=== PATIENT | male | born 1985 | race African-American/Black ===

== ENCOUNTER 2018-01-24 08:38 | Emergency (ER) | payer SELFPAY ==
[2018-01-24] MEDS: ACETAMINOPHEN 500 MG TABLET PO (09:26)
[2018-01-24] MEDS: HYDROCORTISONE ACETATE 25 MG SUPP.RECT PR (09:26)
[2018-01-24 09:32] LABS: FECAL OB PT POSITIVE (NEG); NEG OBC FOB NEG; POS OBC FOB POS
== END 2018-01-24 09:35 | disposition home or self-care (01) ==
LOC: ER 08:38
DX: K64.0 First degree hemorrhoids (principal); K64.4 Residual hemorrhoidal skin tags; K59.00 Constipation, unspecified; J45.909 Unspecified asthma, uncomplicated; Z90.49 Acquired absence of other specified parts of digestive tract; F17.200 Nicotine dependence, unspecified, uncomplicated
CPT/HCPCS: 82274; 99283

== ENCOUNTER 2018-09-04 02:39 | Emergency (ER) | payer SELFPAY ==
[~2018-09-04] VITALS: Ht 172.7 cm; Wt 65.3 kg
[~2018-09-04 02:39] MED LIST: HYDR30CR61 TP; POLY17PO29 PO; WITC1MED18 TP
--- NOTE | 2018-09-04 03:14 | PHYS DOC ---
Past Medical History Past Medical History: Asthma, Other Additional Past Medical Histor: ABSCESSES, HEMORRHOIDS Past Surgical History: Appendectomy, Other Additional Past Surgical Histo: I&D of abscess Alcohol Use: Occasionally Drug Use: None Adult General Chief Complaint Chief Complaint: LACERATION/AVULSION HPI HPI Patient is a 32 year old male presenting with laceration he tripped and fell he was drinking alcohol he states sustained a laceration to his chin. No loss of consciousness no blood thinners. Current Medications Current Medications Current Medications Medications (Trade) Dose Ordered Sig/Nusrat Start Time Stop Time Status Last Admin Dose Admin Diphtheria/ Tetanus/Acell Pertussis (Boostrix) 0.5 ml ONCE ONCE 09/04/18 03:15 09/04/18 03:16 UNV Lidocaine HCl 10 ml 1X ONCE 09/04/18 03:15 09/04/18 03:16 UNV Allergies Allergies Allergies Coded Allergies Type Severity Reaction Last Updated Verified No Known Drug Allergies 04/02/14 No Physical Exam Physical Exam Constitutional: Well developed, well nourished, no acute distress, non-toxic appearance. [] HENT: Normocephalic, 3 cm laceration to the chin decreased subcutaneous no foreign body noted. Eyes: PERRLA, EOMI, conjunctiva normal, no discharge. [] Neck: Normal range of motion, no tenderness, supple, no stridor. [] Pulmonary: Normal respiratory effort no increased work of breathing no obvious chest wall trauma Abdomen: Bowel sounds normal, soft, no tenderness, no masses, no pulsatile masses. [] Skin: Warm, dry, no erythema, no rash. [] See above Back: No tenderness, no CVA tenderness. [] Extremities: No tenderness, no cyanosis, no clubbing, ROM intact, no edema. [] Neurologic: Alert and oriented X 3, normal motor function, normal sensory function, no focal deficits noted. [] Psychologic: Affect normal, judgement normal, mood normal. [] EKG EKG [] Radiology/Procedures Radiology/Procedures [] Course & Med Decision Making Course & Med Decision Making Pertinent Labs and Imaging studies reviewed. (See chart for details) []Laceration: Tetanus was given verbal consent was obtained irrigation was performed no foreign body lidocaine for anesthesia closed with 6-0 nylon simple interrupted sutures excellent skin approximation wound care precautions provided. Dragon Disclaimer Dragon Disclaimer This electronic medical record was generated, in whole or in part, using a voice recognition dictation system. Departure Departure Impression: Primary Impression: Elevated blood pressure reading Additional Impression: Laceration Disposition: 01 HOME, SELF-CARE Condition: STABLE Patient Instructions: Laceration Care, Adult, [id number] Additional Instructions: get bp checked in one month Problem Qualifiers CANDICE SCHAEFER MD Sep 04, 2018 03:14
[2018-09-04 03:30] VITALS: BP 114/55
[2018-09-04] MEDS ORDERED: DIPHTH,PERTUSS(ACELL),TET TOX 0.5 ML DISP.SYRIN. VAX IM ONE (03:30)
[2018-09-04] MEDS ORDERED: LIDOCAINE 2% PF 2ML VIAL. INJ ONE (03:30)
== END 2018-09-04 03:54 | disposition home or self-care (01) ==
LOC: ER 02:39
DX: S01.81XA Laceration without foreign body of other part of head, initial encounter (principal); R03.0 Elevated blood-pressure reading, without diagnosis of hypertension; J45.909 Unspecified asthma, uncomplicated; Z90.89 Acquired absence of other organs; W01.0XXA Fall on same level from slipping, tripping and stumbling without subsequent striking against object, initial encounter; Y93.89 Activity, other specified; Y92.89 Other specified places as the place of occurrence of the external cause; Y99.8 Other external cause status
CPT/HCPCS: 12013; 99283; J2001